=== PATIENT | female | born 1945 | race African-American/Black ===

== ENCOUNTER 2018-09-13 07:42 | Emergency (ER) | payer OTHER ==
[~2018-09-13] VITALS: Ht 160 cm; Wt 74.8 kg
[2018-09-13 07:43] VITALS: Ht 160 cm; Wt 74.8 kg
[2018-09-13 08:28] LABS: BASOPHIL % 0.1 % (0-2); RED CELL DISTRIBUTION WIDTH 15.7 % (11.5-14.5)
[2018-09-13 08:32] LABS: PLATELET COUNT 997 x10^3mcL (130-400)
[2018-09-13 08:38] LABS: CALCIUM 9.1 mg/dL (8.5-10.1); CARBON DIOXIDE 26.1 mmol/L (21-32); CHLORIDE SERUM 98 mmol/L (98-107); GLUCOSE SERUM 117 mg/dL (74-106); POTASSIUM SERUM 4.2 mmol/L (3.5-5.1); SODIUM SERUM 134 mmol/L (136-145)
[2018-09-13 08:42] LABS: ALKALINE PHOSPHATASE 157 U/L (46-116); ALT/SGPT 7 U/L (14-59); AST/SGOT 40 U/L (15-37); BILIRUBIN TOTAL 0.23 mg/dL (0.20-1.00); TOTAL PROTEIN, SERUM 7.9 g/dL (6.4-8.2); URIC ACID 5.5 mg/dL (2.6-6.0)
[2018-09-13 08:44] LABS: ALBUMIN 2.4 g/dL (3.4-5.0)
[2018-09-13 12:48] VITALS: BP 119/63
== END 2018-09-13 12:48 | disposition home or self-care (01) ==
LOC: ED 07:42
PROVIDERS: Emergency Medicine
DX: M25.571 Pain in right ankle and joints of right foot (principal); M25.572 Pain in left ankle and joints of left foot; F17.210 Nicotine dependence, cigarettes, uncomplicated; M19.90 Unspecified osteoarthritis, unspecified site; D47.3 Essential (hemorrhagic) thrombocythemia; D64.9 Anemia, unspecified; F31.9 Bipolar disorder, unspecified
CPT/HCPCS: 36415; J7613; J7644; Q0092